=== PATIENT | male | born 1940 | race Caucasian/White ===

== ENCOUNTER 2017-01-09 10:43 | Inpatient (IN) | payer MEDICARE, OTHER ==
[2017-01-09] MEDS ORDERED: Ondansetron ODT 4 MG TAB PO PRN (12:25)
[2017-01-09] MEDS ORDERED: Ondansetron HCl/PF 4 MG/2 ML Vial IVP PRN (12:25)
[2017-01-09] MEDS ORDERED: Dextrose 5% in Water 1,000 ML IV PRN (12:25)
[2017-01-09] MEDS ORDERED: Morphine Sulfate 2 MG/ML SYRINGE IVP PRN (12:25)
[2017-01-09] MEDS ORDERED: Dextrose 50% Abboject 50 ML SYRINGE SLOW IVP PRN (12:25)
[2017-01-09] MEDS: Acetaminophen 1,000 MG in Premix Bag 1 BAG IVPB SCH ×3 (13:26→23:34)
[2017-01-09] MEDS: Sodium Chloride 0.9% 1,000 ML IV SCH ×2 (13:27→23:35)
[2017-01-09] MEDS: Baclofen 10 MG TAB PO PRN (14:39)
--- NOTE | 2017-01-09 14:57 | HP ---
DATE OF ADMISSION: 01/09/2017 ATTENDING PHYSICIAN: Aden Rayo D.O. TRAUMA ACTIVATION: Not applicable. HISTORY OF PRESENT ILLNESS: Haroon Buck is a 76-year-old male, who presented to [facility] as a transfer from [facility]. Per EMS documentation and patient, he had an epis ode of muscle cramping earlier this morning that he was getting out of bed for and fell. Per patien t, he had immediate onset of left hip pain and back pain. He also endorses hitting his head, but de nies loss of consciousness. Patient was taken to [facility] where he was evaluated and found to have a left hip fracture. He was transferred to [facility] for higher level of care. U carlota my evaluation, the patient has a chief complaint of left hip pain. He is somewhat drowsy second chico to pain medication. Patient denies chest pain, dizziness, shortness of breath around the time o f the fall. He additionally has a history of multiple sclerosis and denies constipation, urinary ou tput changes, numbness or tingling. ALLERGIES: NITROGLYCERIN and SULFA MEDICATIONS. HOME MEDICATIONS: Include aspirin 81 mg p.o. daily, atorvastatin 20 mg p.o. daily, baclofen 20 mg p .o. daily, vitamin D3 supplement, vitamin B12 supplement, Lexapro 20 mg p.o. daily, folic acid and m ultivitamin supplement, gabapentin 600 mg p.o. at bedtime latanoprost 0.005% ophthalmic solution and magnesium 250 mg p.o. daily, Lopressor 25 mg p.o. daily PAST MEDICAL HISTORY: Coronary artery disease, hyperlipidemia, multiple sclerosis and giant cell tu mor, status post resection. PAST SURGICAL HISTORY: Coronary artery stenting x6, hernia repair, cholecystectomy, and bone tumor resection as well as bilateral eye implants. SOCIAL HISTORY: Patient ambulates with the use of a cane, lives at home with his . He drinks 1 -2 glasses of wine daily. He has a remote tobacco history quit in 1968. Denies illicit drug use. FAMILY HISTORY: Significant for mother with rheumatoid arthritis. REVIEW OF SYSTEMS: Negative except as indicated in the HPI. PHYSICAL EXAMINATION: VITAL SIGNS: Blood pressure 131/75, pulse 59, respiration rate 18, O2 sat 98% on 2-3 liters nasal c annula. GENERAL: Well-developed elderly appearing male in no acute distress, resting in bed, eyes closed, a ppears comfortable. HEAD: Normocephalic, atraumatic. EYES: Pupils are PERRL. Extraocular movements are intact. NECK: Supple. Trachea is midline. CHEST/PULMONARY: Atraumatic. No tenderness to palpation. LUNGS: Clear to auscultation bilaterally. CARDIOVASCULAR: Regular rate and rhythm. No obvious murmurs, rubs or gallops. GASTROINTESTINAL: Abdomen soft, nontender, nondistended. Bowel sounds are positive. BACK EXAM: Being within normal limits. MUSCULOSKELETAL: Bilateral upper extremities within normal limits. There is tenderness to the left hip. NEUROLOGIC: GCS of 15. No focal deficit noted. LABORATORY DATA: WBC 7.1, hemoglobin 15.8, hematocrit 44.9, platelet count 148,000. Sodium 142, po tassium 5.0, chloride 105, carbon dioxide 29, BUN 19, creatinine 1.09, glucose 107, total bilirubin 1.5, AST and ALT within normal limits. INR 1.0. RADIOLOGIC FINDINGS: EKG was dictated as sinus bradycardia with normal QRS access, normal ST segmen ts and normal T waves, unfortunately, the original is not available for review at this time. Chest x-ray was read as without acute cardiopulmonary findings. There was no evidence of focal consolidat ion. There were no acute traumatic injuries. There was no cardiomegaly noted. X-ray of the pelvis demonstrated a left femoral neck fracture. X-ray of the left hip showed a left femoral neck fractu re. CT of the head was negative for acute intracranial abnormality and CT of the C-spine was negati ve for acute fracture or dislocation; however, there was moderate multilevel degenerative changes no saurabh and ankylosis of the left C4 and C5 facet joint. ASSESSMENT: 1. Status post mechanical fall. 2. Acute traumatic pain. 3. Left hip fracture. 4. History of coronary artery disease, status post percutaneous transluminal coronary angioplasty x 6, [facility] Carver. 5. History of multiple sclerosis; patient's neurologist is Dr. Lawson. 6. History of hypertension. PLAN: 1. Admit to Trauma Services. 2. We will contact [facility]'s [facility] for patient's last echocardiogram and stress test results , patient states this was done in the last year and there were no abnormalities to his knowledge. 3. Patient to be seen and evaluated by Orthopedic Surgery possible operative intervention later thi s afternoon pending medical clearance. 4. Perioperative pain management. 5. Postoperative PT, OT, and mobility. 6. Deep venous thrombosis and gastritis prophylaxis as appropriate. 7. Trauma attending has been notified of admission. Plans for admission were discussed with the pa tient and his family at bedside. All questions were answered at the time of this dictation.
[2017-01-09] MEDS: traMADol HCl 50 MG TAB PO SCH ×2 (16:26→22:22)
--- NOTE | 2017-01-09 17:57 | CON ---
DATE OF CONSULTATION: 01/09/2017 REASON FOR CONSULTATION: Preop clearance and history of CAD. REFERRING PROVIDER: Dr. Aden Rayo. HISTORY OF PRESENT ILLNESS: Mr. Buck is a 76-year-old gentleman who is a patient of Dr. Hernan loving. He recently fell and broke his hip. From a CV standpoint, he has had previous history of stent placement to the circumflex artery and ri ght coronary artery and LAD. He has had a total of 6 stents. His last stress test performed by Dr. Hernan Carver from his last note was 09/2015. At that time, it was felt to be negative for ischemia per Dr. Hernan Carver's note. He does have a history of CAD, status post stent placement as described above. He has no current symptoms of chest pain, pressure, shortness of breath or other associated symptoms prior to his recent fall. PAST MEDICAL HISTORY: CAD status post stent placement, hyperlipidemia, osteoarthritis, multiple scl erosis, neurologic disorder, anxiety disorder, blood transfusion, and depression. PAST SURGICAL HISTORY: Tonsillectomy. FAMILY HISTORY: Negative for CAD. SOCIAL HISTORY: No current tobacco or alcohol use. MEDICATIONS: Include Lipitor, metoprolol, potassium, aspirin, magnesium, baclofen. REVIEW OF SYSTEMS: A 10-point review of systems is reviewed and as above, otherwise negative. PHYSICAL EXAMINATION: VITAL SIGNS: Blood pressure 114/72, pulse 57, temperature 98.2. GENERAL: Patient is a pleasant male who is in no acute distress. The patient appears his stated ag e. NEUROLOGIC: The patient is alert and oriented times 3 with no focal neurologic deficits. HEENT: Sclerae without icterus. Mouth has moist mucous membranes with normal pallor. NECK: No JVD. Carotid upstroke brisk. No bruits bilaterally. LUNGS: Clear to auscultation with unlabored respirations. BACK: No scoliosis or kyphosis. CARDIAC: Regular rate and rhythm with normal S1 and S2. No S3 or S4 noted. No significant rubs, m urmurs, thrills, or gallops noted throughout the precordium. PMI is not displaced. There is no par asternal heave. ABDOMEN: Soft, nontender, nondistended. No peritoneal signs present. No hepatosplenomegaly. No a bnormal striae. EXTREMITIES: 2+ femoral and 2+ dorsalis pedis pulses. No cyanosis, clubbing, or edema. SKIN: No gross abnormalities. PERTINENT LABORATORY DATA: No current labs available. IMPRESSION: 1. Preop clearance. 2. Coronary artery disease. 3. Status post stent placement. 4. Hip fracture. RECOMMENDATIONS: From a CV standpoint, Mr. Buck has no symptoms suggesting angina. His last stres s study was performed just over a year ago and was felt to be negative for ischemia. At this point, I would feel Mr. Buck is at low risk for a CV complications. I would optimize his pulse pressure product and continue beta roland treatment. Otherwise, I have no further recommendations.
[2017-01-09] MEDS ORDERED: traMADol HCl 50 MG TAB PO SCH (18:00)
[2017-01-09] MEDS: Ketorolac Tromethamine 30 MG/ML VIAL IVP SCH ×2 (18:22→23:34)
[2017-01-09 18:51] VITALS: BMI 27.6
[2017-01-09] MEDS: Cyanocobalamin (Vitamin B-12) 1,000 MCG TAB PO SCH (20:27)
[2017-01-09] MEDS: Famotidine/PF 20 mg/2ml Vial SLOW IVP SCH (20:28)
[2017-01-09] MEDS: Senokot S 8.6-50 MG TAB PO SCH (20:28)
[2017-01-09] MEDS: Atorvastatin Calcium 20 MG TAB PO SCH (20:28)
[2017-01-09] MEDS: Gabapentin 300 MG CAP PO SCH (20:28)
[2017-01-09] MEDS: Baclofen 10 MG TAB PO SCH (20:29)
--- NOTE | 2017-01-09 21:24 | CON ---
DATE OF CONSULTATION: 01/09/2017 HISTORY OF PRESENT ILLNESS: We were asked to see the patient by Trauma in the emergency room. The patient was in his normal state of health, trying to get onto his bed that he states is elevated. Brandon wu took a few steps and stumbled and he does suffer with MS and fell. He was unable to get up and in stantaneous pain. He does have considerable amount of spasms throughout his body and did not get an y pain relief whatsoever with changing positions or moving. In the ER, he is a little bit more comf ortable, but he still gets wave like shocks of pain that last for less than a few seconds, but they are fairly miserable for patient. No numbness and tingling in lower extremities. He is moving his toes okay. is at the bedside with him. ALLERGIES: NITROGLYCERIN, SULFA, CODEINE. CURRENT MEDICATIONS: Aspirin 81 mg a day, atorvastatin, baclofen, vitamin D, vitamin B12, Lexapro, multivitamin, gabapentin, latanoprost eyedrops, magnesium, metoprolol. PAST MEDICAL HISTORY: Coronary artery disease, hyperlipidemia, multiple sclerosis, giant cell tumor . PAST SURGICAL HISTORY: Coronary angioplasty with stent, patient has six stents; hernia repair; chol ecystectomy; bone tumor resection of left tibia. SOCIAL HISTORY: Lives with his . He is retired from the [employer]. Quit smoking in 1968. He has a n occasional ETOH beverage. No illicit drug use. FAMILY HISTORY: Noncontributory. REVIEW OF SYSTEMS: The patient is in quite a bit of distress. Denies any chest pain, a little shor t of breath, a little anxious. Denies any other positive review of systems other than hip pain. PHYSICAL EXAMINATION: GENERAL: A well-nourished appearing male, resting in bed in no acute distress. Speech clear. Affe ct pleasant. Answers questions appropriately. He is oriented. HEENT: Normal exam. Face is symmetric. Tongue midline. NECK: Supple moves well. Range of motion is full. EXTREMITIES: Equal size, shape symmetry. Normal bulk and tone and movements. He does have a littl e bit of tremors in bilateral hands. Lower extremities, left lower extremity is shortened and rotat ed. Right lower extremity, normal exam. He is able to move his toes and feet well. Sensations are intact. DP, PT pulses are equal and symmetric. ASSESSMENT: 1. Left hip fracture status post fall. 2. Multiple medical issues. PLAN: The patient needs a hemiarthroplasty. I explained the procedure, complications, risks, benef its of doing the procedure versus not doing the procedure with the and the patient, they unders tand and are amenable to go forth with surgery, but due to his multiple medical issues, we need to h ave cardiac clearance. The patient and family understand this, we will get him tucked into the floo r, trauma has admitted, we will add a few orders, will give him a regular diet, keep him n.p.o. afte r midnights consent him for the left hemiarthroplasty. We will see him in the morning if questions arise, we will those at that time.
[2017-01-09] MEDS: Metoprolol Tartrate 25 MG TAB PO SCH (22:11)
[2017-01-10] MEDS: traMADol HCl 50 MG TAB PO SCH ×4 (04:42→22:13)
[2017-01-10 05:03] LABS: #Eosinphils 0.5 thou/uL (0.0-0.7); #Lymphocytes 1.1 thou/uL (1.20-3.40); #Monocytes 0.6 thou/uL (0.11-0.59); #Neutrophils 2.8 thou/uL (1.40-6.50); %Basophils 0.6 % (0.0-1.0); %Eosinophils 10.2 % (0.0-10.0); %Lymphocytes 20.8 % (21.0-51.0); %Monocytes 12.6 % (0.0-10.0); Hematocrit 41.9 % (42.0-52.0); Mean Platelet Volume 6.8 fL (7.4-10.4); Red Blood Cell (RBC) Count 4.44 mill/uL (4.70-6.10); White Blood Cell (WBC) Count 5.1 thou/uL (4.8-10.8)
[2017-01-10 05:32] LABS: Anion Gap 9 mmol/L (10-20); BUN (Urea Nitrogen) 18 mg/dL (8.4-25.7); Calc. Creatinine Clearance 75 mL/min (70-130); Calcium 8.6 mg/dL (7.8-10.44); Carbon Dioxide 26 mmol/L (23-31); Chloride 108 mmol/L (98-107); Estimated GFR-MDRD 71; Magnesium 2.2 mg/dL (1.6-2.6); Phosphorus 3.7 mg/dL (2.3-4.7)
[2017-01-10] MEDS: Ketorolac Tromethamine 30 MG/ML VIAL IVP SCH ×3 (05:54→17:40)
[2017-01-10] MEDS: Acetaminophen 1,000 MG in Premix Bag 1 BAG IVPB SCH ×2 (05:54→14:24)
[2017-01-10] MEDS ORDERED: Midazolam HCl 2 mg/2 ml Vial ONE (09:16)
[2017-01-10] MEDS ORDERED: Fentanyl 100 MCG/2 ML VIAL ONE ×4 (09:16→11:35)
[2017-01-10] MEDS ORDERED: Neomycin-Polymyxin 1 ML AMP ONE (09:29)
[2017-01-10] MEDS ORDERED: Lidocaine 2% PF 10 ML AMP (For Epidural Use) ONE (10:14)
[2017-01-10] MEDS ORDERED: PHENYLEPHRINE-NS 100 MCG/ML 10 ML SYRINGE ONE (10:14)
[2017-01-10] MEDS ORDERED: Propofol 200 MG/20 ML VIAL ONE (10:14)
--- NOTE | 2017-01-10 11:19 | OP ---
DATE OF PROCEDURE: 01/10/2017 OPERATION: Left hip hemiarthroplasty. PREOPERATIVE DIAGNOSIS: Left hip femoral neck fracture. POSTOPERATIVE DIAGNOSIS: Left hip femoral neck fracture. COMPLICATIONS: None. ESTIMATED BLOOD LOSS: 150 Ml. SURGEON: Rafita Barrera M.D. RAIL CAR REPAIR CARMAN: Sonido Mercer PA-C. INDICATIONS: Mr. Buck is a 76-year-old male who has fallen. He sustained a left femoral neck frac ture. He was indicated for hemiarthroplasty of the hip to restore function and relieve pain. Risks have been reviewed in detail and he has elected to proceed with the operation. DESCRIPTION OF PROCEDURE: Mr. Buck was identified in the preoperative holding area. His correct e xtremity was marked. He was carried to the operating room. He was positioned on the lateral decubi tus position after anesthesia was induced. The left lower extremity was prepped and draped in steri le fashion. We began the procedure with an approach to the hip. We dissected down to the subcutaneous tissue to the fascia which was incised. We then exposed the underlying short external rotators of the hip. These were subperiosteally divided from the proximal femur. We then performed a capsulotomy. At th is point, we exposed the underlying femoral neck fracture. The broken femoral head was removed from the acetabulum. We cleared any bony fragments. We then started preparation for our stem implantation. We entered the intramedullary canal. We the n reamed up to a size 6 reamer. This was followed by broaching to a size 6 broach. We trialed off of this. A +12.5 femoral neck was appropriate for length and stability. The patient had good range of motion. We removed the trial implants. We then impacted our final stem and bipolar head with our shell. We reduced the hip. We then placed a #5 Ethibond suture and the piriformis tendon and capsule. These sutures were brought through the greater trochanter through drill holes. We tied these over the tr ochanter. At this point, we thoroughly irrigated. We then finished closure by closing fascia with #2 Vicryl suture, 2-0 Vicryl suture for the skin, and then jorge were used. A sterile dressing wa s placed. IMPLANT LIST: [employer] basic press fit Delta stem size 6 with a +12.5 femoral head and a 51 mm bipola r shell.
[2017-01-10] MEDS ORDERED: Promethazine HCl 25 MG/ML VIAL SLOW IVP PRN (11:28)
[2017-01-10] MEDS ORDERED: Promethazine HCl 25 MG/ML VIAL IM PRN (11:28)
[2017-01-10] MEDS ORDERED: Ondansetron HCl/PF 4 MG/2 ML Vial IVP PRN (11:28)
--- NOTE | 2017-01-10 12:56 | RAD ---
SINGLE VIEW OF THE LEFT HIP: Comparison: Left pelvic radiograph, 01-10-17 History: Status post left hip arthroplasty. FINDINGS: A single view of the left hip shows the patient to be status post left hip arthroplasty without miguel hardware lucency or fracture. IMPRESSION: Status post left hip arthroplasty without evidence of complication. POS: [facility]
--- NOTE | 2017-01-10 12:57 | RAD ---
SINGLE VIEW OF THE PELVIS: Comparison: None. History: Status post arthroplasty. FINDINGS: Single view of the left hip shows the patient to be status post left hip arthroplasty without periha rdware lucency or fracture. Overlying skin jorge and air in the soft tissues is from recent surger y. IMPRESSION: Status post left hip arthroplasty without evidence of complication. POS: [facility]
[2017-01-10] MEDS: Baclofen 10 MG TAB PO SCH ×2 (14:06→20:25)
[2017-01-10] MEDS: Cyanocobalamin (Vitamin B-12) 1,000 MCG TAB PO SCH ×2 (14:26→20:25)
[2017-01-10] MEDS: Escitalopram Oxalate 20 mg Tablet PO SCH (14:28)
[2017-01-10] MEDS: Famotidine/PF 20 mg/2ml Vial SLOW IVP SCH ×2 (14:28→20:25)
[2017-01-10] MEDS: Senokot S 8.6-50 MG TAB PO SCH ×2 (14:29→20:26)
[2017-01-10] MEDS: Metoprolol Tartrate 25 MG TAB PO SCH ×2 (14:29→22:13)
[2017-01-10] MEDS ORDERED: Metoprolol Tartrate 25 MG TAB PO SCH (14:30)
[2017-01-10] MEDS ORDERED: Cyanocobalamin (Vitamin B-12) 1,000 MCG TAB PO SCH (14:30)
[2017-01-10] MEDS ORDERED: Escitalopram Oxalate 20 mg Tablet PO SCH (14:30)
[2017-01-10] MEDS ORDERED: Famotidine/PF 20 mg/2ml Vial SLOW IVP SCH (14:30)
[2017-01-10] MEDS: Sodium Chloride 0.9% 1,000 ML IV SCH (15:16)
[2017-01-10] MEDS: Gabapentin 300 MG CAP PO SCH (20:25)
[2017-01-10] MEDS: Atorvastatin Calcium 20 MG TAB PO SCH (20:25)
[2017-01-11] MEDS: Ketorolac Tromethamine 30 MG/ML VIAL IVP SCH ×4 (00:09→16:51)
[2017-01-11] MEDS: traMADol HCl 50 MG TAB PO SCH ×4 (04:17→20:44)
[2017-01-11] MEDS: Sodium Chloride 0.9% 1,000 ML IV SCH ×2 (04:18→16:52)
[2017-01-11 05:17] LABS: Hematocrit 32.9 % (42.0-52.0); Mean Platelet Volume 6.9 fL (7.4-10.4); Red Blood Cell (RBC) Count 3.48 mill/uL (4.70-6.10); White Blood Cell (WBC) Count 4.8 thou/uL (4.8-10.8)
[2017-01-11] MEDS: Baclofen 10 MG TAB PO PRN (05:26)
[2017-01-11 05:44] LABS: Anion Gap 11 mmol/L (10-20); BUN (Urea Nitrogen) 19 mg/dL (8.4-25.7); Calc. Creatinine Clearance 74 mL/min (70-130); Calcium 8.2 mg/dL (7.8-10.44); Carbon Dioxide 24 mmol/L (23-31); Chloride 107 mmol/L (98-107); Estimated GFR-MDRD 69; Magnesium 1.8 mg/dL (1.6-2.6); Phosphorus 2.3 mg/dL (2.3-4.7)
[2017-01-11] MEDS: Escitalopram Oxalate 20 mg Tablet PO SCH (08:37)
[2017-01-11] MEDS: Cyanocobalamin (Vitamin B-12) 1,000 MCG TAB PO SCH ×2 (08:38→20:43)
[2017-01-11] MEDS: Famotidine/PF 20 mg/2ml Vial SLOW IVP SCH ×2 (08:38→20:43)
[2017-01-11] MEDS: Senokot S 8.6-50 MG TAB PO SCH ×2 (08:38→20:44)
[2017-01-11] MEDS: Metoprolol Tartrate 25 MG TAB PO SCH ×2 (08:39→20:44)
[2017-01-11] MEDS ORDERED: Cyclobenzaprine 10 MG TAB PO PRN ×2 (08:41)
[2017-01-11] MEDS: Baclofen 10 MG TAB PO SCH ×3 (09:40→20:42)
[2017-01-11] MEDS: Heparin 5,000 UNITS/ML VIAL SC SCH ×2 (09:40→20:43)
--- NOTE | 2017-01-11 17:12 | PRG-2 ---
DATE OF SERVICE: 01/11/2017 SUBJECTIVE: The patient is postop day #1 for left hip hemiarthroplasty. The patient says he is doi ng well. Pain has been appropriately managed, was getting ready to get up and get around with PT, O T. Reports tolerating food. Urinating okay. Reported that he has not had a bowel movement yet. D enies any fever, chills, shortness of breath or chest pain. OBJECTIVE: VITAL SIGNS: Temperature is 97.9, pulse 78, respirations 16, O2 sat is 95% and blood pressure is 12 9/75. GENERAL: He is well developed, resting in bed, in no acute distress. HEENT: Normocephalic and atraumatic. PULMONARY: Lungs are clear to auscultation bilaterally, atraumatic, symmetric chest expansion on br eathing with inspiratory and expiratory effort. CARDIOVASCULAR: Regular rate and rhythm. No obvious murmurs, rubs or gallops. GASTROINTESTINAL: Abdomen is soft, nontender and nondistended. MUSCULOSKELETAL: He had some hip pain on palpation. Incision site is clean. No drainage noted. N o redness noted. NEUROLOGIC: GCS of 15. No focal deficit noted. LABORATORY DATA: White blood cell count of 4.8, hemoglobin 11.4, hematocrit 32.9 and platelet count of 121. Chemistry: Sodium is 137, potassium is 4.7, chloride is 107, carbon dioxide is 24, BUN is 19, creatinine is 1.05, glucose is 119, calcium is 8.2, phosphorus is 2.3 and magnesium is 1.8. ASSESSMENT: 1. He is status post mechanical fall. 2. Acute traumatic pain. 3. Left hip fracture, status post humeral arthroplasty. 4. History of coronary artery disease, status post percutaneous transluminal coronary angioplasty x 6. 5. History of multiple sclerosis. 6. History of hypertension. PLAN: We will continue with current pain management. He is tolerating pain. Continue current pain management. We will continue with a bowel regimen as the patient has not had a bowel movement yet. We will continue having him working with PT, OT and will be assessed for rehab as the patient came from home and would likely be a good candidate for rehab. We will continue with current plan of ca re. Deep venous thrombosis and gastritis prophylaxis are appropriate. Patient was seen and assesse d with Dr. Rayo. Plan of care is discussed with Dr. Rayo at this time.
--- NOTE | 2017-01-11 17:26 | PDOC.CTH ---
Cardiology Progress Note - Subjective Patient seen and examined. Denies any CP, pressure, SOB or palpitations. One day post L hip hemiarthroplasty and reports feeling well. - Objective Vital Signs Temp Pulse Resp BP Pulse Ox Pulse Ox 01/11/17 13:26 78 12 01/11/17 12:01 97.9 F 78 16 129/75 95 01/11/17 10:16 93 L 01/11/17 08:39 98.1 F 92 16 108/55 L 94 L 01/11/17 08:15 98.1 F 92 16 93 L 01/11/17 07:18 93 L 01/11/17 07:13 77 12 Weight 186 lb 15.232 oz 01/10/17 01/11/17 01/12/17 06:59 06:59 06:59 Intake Total 2089 3720 Output Total 2049 2150 Balance 40 1570 - Physical Examination General/Neuro: alert & oriented x3, NAD Neck: no JVD present Lungs: CTA, unlabored respirations Heart: RRR Abdomen: soft Extremities: other: (no edema) - Labs Result Diagrams: 01/11/17 04:02 01/11/17 04:02 - Assessment/Plan 1. S/p L hip hemiarthroplasty 2. History of CAD s/p stent placement PLAN: Patient is stable from CV standpoint. He had a successful left hemiarthroplasty one day ago without any complications. We have no further CV recommendations at this time. Patient will need to continue all CV meds and follow up with primary roofing machine operator upon discharge.
[2017-01-11] MEDS: Gabapentin 300 MG CAP PO SCH (20:43)
[2017-01-11] MEDS: Atorvastatin Calcium 20 MG TAB PO SCH (20:45)
[2017-01-12] MEDS: Ketorolac Tromethamine 30 MG/ML VIAL IVP SCH ×2 (00:11→05:07)
[2017-01-12] MEDS: traMADol HCl 50 MG TAB PO SCH (05:07)
[2017-01-12] MEDS: Cyanocobalamin (Vitamin B-12) 1,000 MCG TAB PO SCH (07:50)
[2017-01-12] MEDS: Escitalopram Oxalate 20 mg Tablet PO SCH (07:51)
[2017-01-12] MEDS: Metoprolol Tartrate 25 MG TAB PO SCH (07:51)
[2017-01-12] MEDS: Senokot S 8.6-50 MG TAB PO SCH (07:52)
[2017-01-12] MEDS: Baclofen 10 MG TAB PO SCH (07:53)
[2017-01-12] MEDS: Heparin 5,000 UNITS/ML VIAL SC SCH (07:53)
[2017-01-12] MEDS: Famotidine/PF 20 mg/2ml Vial SLOW IVP SCH (07:53)
[2017-01-12] MEDS ORDERED: Ibuprofen 600 MG TAB PO PRN (08:22)
[2017-01-12 13:27] VITALS: BP 99/65; TEMP 98.6
--- NOTE | 2017-01-12 21:07 | DIS ---
DATE OF ADMISSION: 01/09/2017 ADMISSION DIAGNOSES: 1. Status post fall. 2. Acute traumatic pain. 3. Left hip fracture. 4. History of coronary artery disease. 5. Multiple sclerosis. 6. Hypertension. DISCHARGE DIAGNOSES: 1. Status post fall. 2. Acute traumatic pain. 3. Left hip fracture. 4. History of coronary artery disease. 5. Multiple sclerosis. 6. Hypertension. CONSULTANTS: Dr. Barrera, Orthopedic Surgery and Dr. Kim, Cardiology. PROCEDURES: On 01/10/2017, left hip hemiarthroplasty. HOSPITAL COURSE: Haroon Buck is a 76-year-old male, who presented to [facility] as a transfer from [facility]. Per patient, he slipped and fell out of bed after an episode of mus nikolay cramping. He was evaluated and found to have a left hip fracture. He was admitted by Trauma Se dony with Orthopedic Surgery for consultation. He was seen by Cardiology for cardiac clearance pr ior to his operation. He underwent operative intervention of his injury on 01/10/2017 after being c leared by Cardiology for surgery. The patient did well postoperatively. He was able to ambulate wi th the assistance of physical therapy. His pain was controlled via p.o. analgesics. He is tolerati ng p.o. diet. He was hemodynamically stable and accepted to [facility]. DISCHARGE DISPOSITION: [facility]. DISCHARGE CONDITION: Fair. PHYSICAL EXAMINATION: Temperature 98.1, pulse 87, respirations 12, O2 sat 97% on room air, blood pr essure 113/65. DISCHARGE INSTRUCTIONS: The patient should maintain hip precautions. He should see and work with p hysical therapy and occupational therapy at the accepting facility. He should keep the surgical sit e clean and dry. DISCHARGE MEDICATIONS: Resume home medications. Discharge medication list provided to the [facility], and as documented in the electronic medical record. FOLLOWUP APPOINTMENTS: The patient should follow up with Orthopedic Surgery as directed by their te am. He may call their office for an appointment. He should follow up with his glassware defect repairer psuellen. He does not need to follow up with Trauma Services at this time, may call our office with any quest ions. This is merely a summary of the patient's hospitalization. For more in depth information, please se e his medical record in its entirety.
== END 2017-01-12 14:57 | disposition swing bed (61) | DRG 470 ==
LOC: ERS 10:43 → SURG A 11:26
PROVIDERS: ADMIT Surgery; ATTEND Surgery
PROC: 0SRS0JA Replacement of Left Hip Joint, Femoral Surface with Synthetic Substitute, Uncemented, Open Approach (ICD-10-PCS; principal; 2017-01-10)
DX: S72.002A Fracture of unspecified part of neck of left femur, initial encounter for closed fracture (principal); G35 Multiple sclerosis; W06.XXXA Fall from bed, initial encounter; Y92.239 Unspecified place in hospital as the place of occurrence of the external cause; Z88.2 Allergy status to sulfonamides; Z88.8 Allergy status to other drugs, medicaments and biological substances; Z79.82 Long term (current) use of aspirin; I25.10 Atherosclerotic heart disease of native coronary artery without angina pectoris; E78.5 Hyperlipidemia, unspecified; Z95.5 Presence of coronary angioplasty implant and graft; G89.11 Acute pain due to trauma; I10 Essential (primary) hypertension; M19.90 Unspecified osteoarthritis, unspecified site; F41.9 Anxiety disorder, unspecified; F32.9 Major depressive disorder, single episode, unspecified
CPT/HCPCS: 36415; 72170; 80048; 83735; 84100; 85025; 85027; 94640; 99285; G0390; G8978-GP-CL; G8978-GP-CM; G8979-GP-CJ; G8987-GO-CL; G8988-GO-CI; J0131; J1644; J1885; J2001; J2250; J2270; J2704; J3010; J7620; S0028

== ENCOUNTER 2017-06-12 08:02 | Outpatient (CLI) | payer MEDICARE, OTHER ==
[2017-06-12] MEDS ORDERED: Magnevist 469MG/ML 20 ML VIAL ONE (09:00)
--- NOTE | 2017-06-12 15:18 | MRI ---
MRI CERVICAL SPINE WITH AND WITHOUT IV CONTRAST: History: Neck and back pain after falling from stairs two to three weeks ago. Contrast: 16 ml of MultiHance IV. FINDINGS: There is non-cerebral and cerebellar volume loss involving the visualized base of the brain. There is a circumscribed increased T2 weighted signal intensity lesion seen in the posterior aspect of the se lla measuring approximately 9 mm in maximal craniocaudal dimensions. This cystic lesion was also pres ent on MRI of the brain on 01-03-16 and is unchanged. 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 Mild endplate degenerative change is present at the C5-6 and to a greater degree at the C6-7 level. T here is a focus of increased T1 and T2 weighted signal intensity measuring less than 1 cm within the T2 vertebral body, probably related to either a focal area of fat or small hemangioma. There is mild diminished signal intensity on T1 weighted images within the inferior plate of the C3 vertebral body, probably related to mild degenerative changes excentric to the right. C2-3: There is no disc bulge or disc herniation. Central spinal canal and neural foramina are patent. C3-4: There is a mild broad based disc bulge excentric to the associated right sided uncinate process hypertrophy. This results in mild right sided neural foraminal narrowing. Left neural foramen is pat ent. There is mild effacement of the ventral subarachnoid space. C4-5: There is slight anterolisthesis of C4 on C5. There is mild broad based disc bulge which results in effacement of the ventral subarachnoid space. Neural foramina are widely patent. C5-6: There is loss of intervertebral disc height. There is a mild broad based disc osteophyte comple x which narrows the ventral subarachnoid space. The neural foramina are patent. There is mild encroac hment of the anterior aspect of the spinal cord at this level. C6-7: There is loss of intervertebral disc height. There is a broad based disc osteophyte complex pre sent resulting in narrowing of the ventral subarachnoid space. Neural foramina are patent. C7-T1: There minimal disc osteophyte complex. The central spinal canal and neural foramina are widely patent at this level. No abnormal areas of enhancement are seen after the administration of intravenous contrast, but there is prominent motion artifact on the post contrast images which does limit evaluation. IMPRESSION: 1. Multilevel degenerative changes in the cervical spine. 2. 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 POS: [facility]
--- NOTE | 2017-06-12 15:55 | MRI ---
PRE AND POSTCONTRAST ENHANCED MRI IMAGES LUMBAR SPINE. 06/12/17 HISTORY: Back pain, fell down stairs two to three weeks ago with continued back pain. Multiplanar and multisequence pre and postcontrast enhanced MRI images lumbar spine obtained. Images demonstrate multiple bilateral renal hyperintense areas compatible with likely renal cysts. Fu rther workup sonography may be of use to further characterize these renal lesions. The abdominal aorta is unremarkable. T12-L1: Unremarkable. L1-2: No significant degree of central stenosis or neural foraminal narrowing is seen. L2-3: No significant degree of central or neural foraminal narrowing is seen. L3-4: There is some mild facet hypertrophy. No significant degree of central or neural foraminal narr owing is seen. L4-5: Disc desiccation is seen. There is a broad based disc bulge with bilateral facet and ligamentum flavum hypertrophy. This results in mild central and left lateral recess stenosis. The neural forame n are patent. L5-S1: There is mild facet hypertrophy. The central canal and neural foramen are patent. IMPRESSION: No evidence of acute lumbar spine pathology. POS: [facility]
--- NOTE | 2017-06-12 15:56 | MRI ---
PRE AND POST CONTRAST ENHANCED MRI IMAGES OF THE THORACIC SPINE: History: Back pain. R52 The patient has a history of fall from stairs two to three weeks ago with co ntinued back pain. Technique: Multiplanar, multisequence pre and post contrast enhanced MRI images of the thoracic spine obtained. FINDINGS: Images demonstrate dextroscoliosis centered in the mid right thoracic region. No evidence of areas of significant height loss is seen to suggest compression fractures. There does appear to be some endplate edema at the T8-9 left sided endplates. This is compatible with Modic type I changes. There are some Modic type II changes seen at the T7-8 endplates. No evidence of spinal cord abnormality is seen. No evidence of disc herniation is seen. IMPRESSION: 1. Midthoracic endplate Modic changes as described above. No acute abnormalities seen. POS: EARLINE
== END 2017-06-12 08:03 | disposition home or self-care (01) ==
LOC: SCSMRI 08:02
PROVIDERS: ATTEND Internal Medicine
DX: M54.2 Cervicalgia (principal); M54.6 Pain in thoracic spine; M54.5 Low back pain; M47.892 Other spondylosis, cervical region; G93.0 Cerebral cysts
CPT/HCPCS: 72156; 72157; 72158; 82565; A9579

== ENCOUNTER 2017-09-04 12:25 | Outpatient (CLI) | payer MEDICARE, OTHER ==
[~2017-09-04 12:25] MED LIST: Gadobenate Dimeglumine 529 MG/1 ML (20ML VIAL) ONE
--- NOTE | 2017-09-04 18:28 | MRI ---
MRI LEFT HUMERUS WITH AND WITHOUT IV CONTRAST: 09/04/2017 PROVIDED CLINICAL HISTORY: Left humerus pain. TECHNIQUE: MR imaging was acquired of the mid to distal humerus. FINDINGS: There is no evidence for a soft tissue mass. Regional marrow and muscular signal demonstrate no foca l concerning abnormality. The courses of the regional major neurovascular structures appear unremark able. No abnormal contrast enhancement is identified. IMPRESSION: Unremarkable MRI of the left mid to distal humerus. POS: EARLINE
== END 2017-09-04 12:26 | disposition home or self-care (01) ==
LOC: SCSMRI 12:25
PROVIDERS: ATTEND Internal Medicine
DX: R22.30 Localized swelling, mass and lump, unspecified upper limb (principal)
CPT/HCPCS: 82565; A9579

== ENCOUNTER 2025-04-03 09:53 | Inpatient (IN) | payer MEDICARE, OTHER ==
[2025-04-03 12:55] LABS: Acetaminophen Less than 10 mcg/mL (Less than 10); Salicylate Less than 8.0 mg/dL (Less than 8.0)
[2025-04-03] MEDS: Aspirin 81 mg Enteric Coated Tablet PO SCH (14:12)
[2025-04-03 15:25] VITALS: BMI 23.8
[2025-04-03] MEDS: Enoxaparin 40 MG (0.4 mL) SYRINGE SC SCH (21:28)
[2025-04-03] MEDS ORDERED: Mag-Al Plus 1200/1200/120 MG (30 mL) UDCUP PO PRN (21:46)
[2025-04-04 05:32] LABS: #Basophils 0.04 10x3/uL (0.0-0.2); #Eosinophils 0.11 10x3/uL (0.0-0.7); #Monocytes 0.84 10x3/uL (0.11-0.59); #Neutrophils 4.49 10x3/uL (1.40-6.50); %Basophils 0.6 % (0.0-1.0); %Eosinophils 1.8 % (0.0-10.0); %Lymphocytes 11.1 % (21.0-51.0); %Monocytes 13.6 % (0.0-10.0); %Neutrophils 72.6 % (42.0-75.0); Hematocrit 43.0 % (42.0-52.0); Hemoglobin 14.2 g/dL (14.0-18.0); Mean Corpuscular Hemoglobin 29.1 pg (27.0-31.0); Mean Corpuscular Volume 88.1 fL (78.0-98.0); Platelet Count 171 10x3/uL (130-400); Red Blood Cell (RBC) Count 4.88 mill/uL (4.70-6.10); White Blood Cell (WBC) Count 6.19 10x3/uL (4.8-10.8)
[2025-04-04 05:51] LABS: ALT (SGPT) 11 U/L (Less than 45); AST (SGOT) 20 U/L (11-34); Albumin 3.6 g/dL (3.1-4.5); Alkaline Phosphatase 113 U/L (40-110); Anion Gap 13 mmol/L (10-20); BUN (Urea Nitrogen) 18 mg/dL (8.4-25.7); Bilirubin, Total 1.2 mg/dL (0.3-1.2); Calc. Creatinine Clearance 66 mL/min (70-130); Calcium 8.9 mg/dL (7.8-10.44); Carbon Dioxide 23 mmol/L (23-31); Cardiac Risk 4.9 (Less than 4.5); Chloride 107 mmol/L (98-107); Cholesterol 181 mg/dl (< 200 Desired); Globulin 2.7 g/dL (2.4-3.5); Glucose 118 mg/dL (83-110); HDL Cholesterol 37 mg/dL (>60 Neg Risk); LDL Cholesterol, Calculated 123 mg/dL; Potassium 4.0 mmol/L (3.5-5.1); Sodium 139 mmol/L (136-145); Triglycerides 107 mg/dL (Less than 150)
[2025-04-04] MEDS: Aspirin 81 mg Enteric Coated Tablet PO SCH (09:50)
[2025-04-04] MEDS: Famotidine 20 MG TAB PO SCH (09:50)
[2025-04-04 11:34] LABS: Bacteria/HPF None Seen HPF (None Seen); Glucose, Urine (Dipstick) Normal (Negative); Leukocyte Negative Leu/uL (Negative); Protein, Urine (Dipstick) Negative (Neg-Trace); RBC/HPF 0-3 HPF (0-3); Specific Gravity, Urine 1.021 (1.002-1.036); WBC/HPF 0-3 HPF (0-3)
[2025-04-05] MEDS: Ondansetron PF 4 MG/2 ML Vial IVP PRN (13:06)
[2025-04-05] MEDS: OLANZapine 10 MG VIAL IM SCH (23:17)
[2025-04-06] MEDS: Acetaminophen 325 MG TAB PO PRN (01:34)
[2025-04-06] MEDS: Guaifenesin DM 100-10/5 ML UDCUP PO PRN (01:37)
[2025-04-06] MEDS: PNEUMOC 20-VAL CONJ-DIP CRM/PF 0.5 ML SYRINGE IM ONE (14:02)
[2025-04-07] MEDS: Baclofen 10 MG TAB PO SCH (08:32)
[2025-04-07] MEDS: clonazePAM 0.5 MG TAB PO SCH (20:28)
[2025-04-07] MEDS: OLANZapine 10 MG VIAL IM SCH (21:36)
[2025-04-08 11:22] VITALS: BP 108/54; TEMP 98.7
== END 2025-04-08 15:29 | DRG 93 ==
LOC: ERS 09:53 → 2SE 13:08 → OBSVTOIN 04-04 14:18
PROVIDERS: ADMIT Family Medicine; ATTEND Student in an Organized Health Care Education/Training Program
PROC: XX20X89 Monitoring of Brain Electrical Activity, Computer-aided Detection and Notification, New Technology Group 9 (ICD-10-PCS; principal; 2025-04-04)
PROC: 3E0234Z Introduction of Serum, Toxoid and Vaccine into Muscle, Percutaneous Approach (ICD-10-PCS; 2025-04-06)
DX: G92.9 Unspecified toxic encephalopathy (principal); I25.10 Atherosclerotic heart disease of native coronary artery without angina pectoris; I10 Essential (primary) hypertension; E78.5 Hyperlipidemia, unspecified; Z98.890 Other specified postprocedural states; Z88.5 Allergy status to narcotic agent; Z88.8 Allergy status to other drugs, medicaments and biological substances; G35.D Multiple sclerosis, unspecified; R53.81 Other malaise; Z23 Encounter for immunization
CPT/HCPCS: 36415; 70553; 76376; 80053; 80061; 80307; 81001; 84484; 85025; 90471; 90677; 93005; G0009; J1650; J2405; J7030; Q0162